=== PATIENT | male | born 1950 | race Caucasian/White ===

== ENCOUNTER 2018-09-28 01:44 | Outpatient (CLI) | payer MEDICARE, BC, SELFPAY ==
[2018-09-28 09:24] LABS: HCT 44.2 % (40.0-50.0); HGB 14.7 g/dL (13.5-17.5); Mean Corp. HGB Concentration 33.3 g/dL (32.0-36.0); Mean Corpuscular Hemoglobin 29.1 pg (27.0-33.0); Mean Corpuscular Volume 87.5 fL (80-95); Mean Platelet Volume 9.8 fL (8.0-11.0); Platelet Count 336 x1000/uL (130-400); RBC 5.05 m/cumm (4.50-6.00); RBC Distribution Width 14.6 % (11.8-14.1)
[2018-09-28 10:44] LABS: ALT 42 U/L (12-78); AST 27 U/L (15-37); Albumin 3.9 g/dL (3.4-5.0); Alkaline Phosphatase 70 U/L (46-116); Anion Gap 8.2 mmol/L (3-11); BUN 18 mg/dL (7-18); Bilirubin, Total 0.5 mg/dL (0.2-1.0); CO2 29.8 mmol/L (21.0-32.0); Calcium 9.1 mg/dL (8.5-10.1); Calculated LDL 160; Chloride 102 mmol/L (98-107); Cholesterol 224 mg/dL (50-200); Glucose 93 mg/dL (70-100); HDL Cholesterol 39 mg/dL (40-60); Potassium 4.3 mmol/L (3.5-5.1); Sodium 140 mmol/L (136-145); Total Protein 7.4 g/dL (6.4-8.2); Triglyceride 129 mg/dL (30-150)
== END 2018-09-28 02:04 ==
PROVIDERS: PCP Family Medicine; Visit Provider Family Medicine
DX: E78.5 Hyperlipidemia, unspecified (principal); K40.90 Unilateral inguinal hernia, without obstruction or gangrene, not specified as recurrent
CPT/HCPCS: 36415; 80053; 80061; 83721; 85027; 99214

== ENCOUNTER 2018-10-05 07:16 | Day surgery (SDC) | payer MEDICARE, BC, SELFPAY ==
[2018-10-05] VITALS (7 sets, daily range): BP systolic 102–139; BP diastolic 58–83; PULSE 42–50; RESP 12–18; TEMP 35.2–36.5; O2SAT 100
[2018-10-05] MEDS: Lactated Ringers 1,000 ML 80 ML IV (07:56)
[2018-10-05] MEDS: ceFAZolin 2 GM/50 ML BAG IVPB (08:34)
[2018-10-05] MEDS: Bupivacaine LIPOSOME/PF 133 MG/10 ML VIAL IJ (08:42)
[2018-10-05] MEDS: Bupivacaine 0.25% Pres-Free 30 ML VIAL (08:42)
[2018-10-05] MEDS: Bupivacaine 0.5% Pres-Free 30 ML VIAL (08:57)
--- NOTE | 2018-10-05 09:50 | PDOC.DSDIS_ITS ---
Discharge Plan Disposition Patient Disposition: HOME Condition: Good Discharge Details Attending Provider: July Chu Primary Care Provider: Abdirizak Page Home Meds and New Rx's Prescriptions: Continued omega 4-erd-ugd-fish oil [Fish Oil] 1,000 mg (120 mg-180 mg) capsule 1 cap PO DAILY RF: 0 triamcinolone acetonide 15 GM cream 1 mahsa Topical PRN Qty: 1 RF: 3 chaga 8 oz PO DAILY RF: 0 multivitamin 1 EACH capsule 1 ea PO DAILY RF: 0 ibuprofen 600 MG tablet 600 mg PO Q6H PRN PRNQty: 30 RF: 0 acetaminophen [Tylenol] 325 MG tablet 650 mg PO Q6H PRN PRNQty: 30 RF: 0 Discharge Instructions Additional Instructions: NO lifting over 15# for one month postop Remove top dressing tomorrow, steri strips fall off in about one week Use ice as needed Call for uncontrolled pain, infection, or significant bruising Referrals: July Chu MD [ [facility] STAFF PHYSICIAN] - (Call for appointment in 10-14 days.) Activity:: Walking/stairs okay Remove Dressings/Wound Care:: 24 hours Shower/Bathe:: 24 hours Diet:: As Tolerated Discharge Orders Discharge Orders: Discharge Order (Routine); Ordered 10/05/18 Ordered By: July Chu
--- NOTE | 2018-10-05 10:21 | ROE_ITS ---
DATE OF PROCEDURE: October 05, 2018 PREOPERATIVE DIAGNOSIS: Left inguinal hernia. POSTOPERATIVE DIAGNOSIS: Left indirect inguinal hernia. PROCEDURE: Left inguinal hernia repair with mesh. SURGEON: July Chu M.D. RADIOGRAPHER CARDIAC CATHETERIZATION: Kady Sanchez ANESTHESIA: TAP block and general. INDICATIONS: This is a 68-year-old man with a tender, reducible bulge in his left groin. PROCEDURE: He was placed supine on the operating table and after induction of general anesthetic had a left-sided TAP block placed. His left groin was then prepped and draped sterilely. A transverse incision was made between the ASIS and pubic tubercle after injection local anesthetic. The subcutan eous tissue was divided with cautery down to the external oblique fascia. Any veins encountered were clamped, divided and ligated with #3-0 Vicryl ties. Local anesthetic was infiltrated underneath the external oblique fascia. A small incision was made in the fascia and extended through the external ring and laterally as well. The iliohypogastric and ilioinguinal nerves were identified and avoided. The spermatic cord was encircled at the level of the pubic tubercle with a Andrea drain. Dissecti on in the medial aspect of the cord revealed a small indirect hernia sac, which was dissected up to t he internal ring. The sac was opened and had no contents. It was suture ligated at its base with a #2-0 Vicryl stitch and then the sac amputated. A medium-sized mesh plug was placed in the internal r ing and sutured in two positions with interrupted #2-0 Prolene sutures. The flat sheet of mesh was p laced on the floor of the inguinal canal and sutured in position in standard Sada fashion. T here was good hemostasis so the external oblique fascia was closed with a running #3-0 Vicryl stitch, as was Viridiana's fascia and the skin closed with a running #4-0 Monocryl subcuticular stitch. He shanna erated the procedure well and was stable to recovery. cc: Abdirizak Page M.D.
== END 2018-10-05 11:17 | disposition home or self-care (01) ==
PROVIDERS: PCP Family Medicine; Visit Provider Surgery
PROC: (CPT 49505; principal; 2018-10-05 08:30)
DX: K40.90 Unilateral inguinal hernia, without obstruction or gangrene, not specified as recurrent (principal); G89.18 Other acute postprocedural pain
CPT/HCPCS: 49505; 76942; C1781; J0690; J1100; J1885; J2405

== ENCOUNTER → 2018-10-25 08:59 | Outpatient (BNVA) | payer MEDICARE, BC, SELFPAY | PROVIDERS: PCP Family Medicine; Referring Provider Family Medicine; Visit Provider Surgery | DX: Z48.815 Encounter for surgical aftercare following surgery on the digestive system (principal); Z87.19 Personal history of other diseases of the digestive system ==

== ENCOUNTER 2020-01-16 03:02 | Outpatient (CLI) | payer MEDICARE, BC, SELFPAY ==
[2020-01-16 08:23] LABS: Abs Immature Grans 0.01 10^3/uL (0.0-0.06); Absolute Basophil Count 0.07 10^3/uL (0.0-0.2); Absolute Eosinophil Count 0.11 10^3/uL (0.0-0.7); Absolute Lymphocyte Count 1.24 10^3/uL (1.2-3.4); Absolute Neutrophil Count 3.23 10^3/uL (1.2-6.7); Basophils % 1.4; Eosinophils % 2.1; HCT 39.7 % (40.0-50.0); HGB 13.3 g/dL (13.5-17.5); Immature Grans % 0.2; MCH 29.3 pg (27.0-33.0); MCHC 33.5 % (32.0-36.0); MCV 87.4 fL (80-95); MPV 9.9 fL (8.0-11.0); Monocytes % 9.7; Neutrophils % 62.6; Nucleated RBC 0 %; Platelet Count 256 10^3/uL (130-400); RBC 4.54 10^6/uL (4.36-5.78); RDW 13.9 % (11.8-14.1); RDW-SD 44.5 fL; WBC 5.16 10^3/uL (4.4-10.8)
[2020-01-16 10:20] LABS: ALT 36 U/L (16-63); AST 26 U/L (15-37); Albumin 3.6 g/dL (3.4-5.0); Alkaline Phosphatase 51 U/L (46-116); Anion Gap 4.2 mmol/L (3-11); BUN 19 mg/dL (7-18); Bilirubin, Total 0.6 mg/dL (0.2-1.0); CO2 30.8 mmol/L (21.0-32.0); CREATININE 0.91 mg/dL (0.70-1.30); Calcium 8.5 mg/dL (8.5-10.1); Calculated LDL 143 mg/dL (<100); Chloride 104 mmol/L (98-107); Cholesterol 203 mg/dL (<200); Glucose 93 mg/dL (74-106); HDL Cholesterol 46 mg/dL (40-60); Potassium 4.7 mmol/L (3.5-5.1); Sodium 139 mmol/L (136-145); TSH (W/Ref FT4) 1.01 uIU/mL (0.36-3.74); Total Protein 6.7 g/dL (6.4-8.2); Triglyceride 71 mg/dL (<150); Vitamin B12 339 pg/mL (193-986)
== END 2020-01-16 03:22 ==
PROVIDERS: PCP Family Medicine; Visit Provider Family Medicine
DX: E78.5 Hyperlipidemia, unspecified (principal); R41.89 Other symptoms and signs involving cognitive functions and awareness; R41.3 Other amnesia; N52.9 Male erectile dysfunction, unspecified
CPT/HCPCS: 36415; 80053; 80061; 82607; 84443; 85025

== ENCOUNTER 2020-02-02 01:46 | Outpatient (CLI) | payer MEDICARE, BC, SELFPAY ==
--- NOTE | 2020-02-02 14:00 | DI.CT_ITS ---
EXAM: CT HEAD WO CLINICAL HISTORY: early dementia,COGNITIVE IMPAIRMENT,R41.89. TECHNIQUE: Imaging Protocol: Axial computed tomography images with coronal and sagittal reformatted images were created and reviewed COMPARISON: No exams were available for comparison FINDINGS: Ventricles and Extra axial spaces: Normal in size and morphology for the patient's age. Hemorrhage: None. Cerebral parenchyma: There are subtle areas of decreased attenuation in the white matter most suggest natalie of microvascular ischemic change. No acute territorial infarct. Midline shift: None. Brainstem/Cerebellum: Normal. Calvarium: Normal. Visualized Paranasal sinuses/Mastoids: Clear. Soft Tissues: Unremarkable. IMPRESSION: No acute intracranial process. RADIATION DOSE DELIVERED: 794.23mGy.cm Total DLP DATA REPOSITORY: All CT scans at this facility are submitted to the National Radiology Data Registry (NRDR) Dose Index Registry (DIR) with the [employer] ([employer]). RADIATION OPTIMIZATION: All CT scans at this facility use at least one of these dose optimization te chniques: automated exposure control; mA and/or kV adjustment per patient size (includes targeted exa ms where dose is matched to clinical indication); or iterative reconstruction.
== END 2020-02-02 02:06 ==
PROVIDERS: PCP Family Medicine; Visit Provider Family Medicine
DX: F03.90 Unspecified dementia, unspecified severity, without behavioral disturbance, psychotic disturbance, mood disturbance, and anxiety (principal); R41.89 Other symptoms and signs involving cognitive functions and awareness
CPT/HCPCS: 70450

== ENCOUNTER 2020-10-10 14:23 | Outpatient (CLI) | payer MEDICARE, BC, SELFPAY ==
--- NOTE | 2020-10-10 14:15 | RT.EKG_ITS ---
APPROVED REPORT Exam: Resting ECG Reason for Exam: per neurology Patient Location: O HR:55 bpm ECG Measurements Heart Rate 55 AXIS MT 156 P 49 QRSd 91 QRS 82 QT 399 T -2 QTc 383 Conclusion Sinus bradycardia...rate< 60
== END 2020-10-10 14:24 | disposition home or self-care (01) ==
LOC: DI.CM 14:24
PROVIDERS: PCP Nurse Practitioner Family; Visit Provider Nurse Practitioner Family
DX: I49.49 Other premature depolarization (principal)
CPT/HCPCS: 93010

== ENCOUNTER 2020-10-30 04:06 | Outpatient (CLI) | payer MEDICARE, BC, SELFPAY ==
[2020-10-30 11:17] LABS: ALT 31 U/L (16-63); AST 22 U/L (15-37); Albumin 3.8 g/dL (3.4-5.0); Alkaline Phosphatase 55 U/L (46-116); Anion Gap 6.1 mmol/L (3-11); BUN 14 mg/dL (7-18); Bilirubin, Total 0.7 mg/dL (0.2-1.0); CO2 29.9 mmol/L (21.0-32.0); Calcium 9.2 mg/dL (8.5-10.1); Chloride 104 mmol/L (98-107); Glucose 93 mg/dL (74-106); Potassium 4.6 mmol/L (3.5-5.1); Sodium 140 mmol/L (136-145); Total Protein 7.1 g/dL (6.4-8.2)
[2020-10-30 18:20] LABS: PSA, Screening 1.3 ng/mL (0.0-4.5)
[2020-10-31 20:21] LABS: Calculated LDL 169 mg/dL (<100); Cholesterol 234 mg/dL (<200); HDL Cholesterol 44 mg/dL (40-60); Triglyceride 107 mg/dL (<150)
== END 2020-10-30 04:07 | disposition home or self-care (01) ==
PROVIDERS: PCP Nurse Practitioner Family; Visit Provider Nurse Practitioner Family
DX: R41.89 Other symptoms and signs involving cognitive functions and awareness; N52.9 Male erectile dysfunction, unspecified; N13.9 Obstructive and reflux uropathy, unspecified; Z12.5 Encounter for screening for malignant neoplasm of prostate
CPT/HCPCS: 36415; 80053; 80061; 84153